=== PATIENT | female | born 2000 | race Caucasian/White ===

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

== ENCOUNTER 2024-02-18 09:01 | Emergency (ER) | payer SELFPAY ==
[2024-02-18] MEDS ORDERED: Ibuprofen 800 MG TAB ONE (09:27)
[2024-02-18] MEDS ORDERED: Acetaminophen 500 MG TAB ONE (09:28)
[2024-02-18 09:49] LABS: Pregnancy Test - Urine (BHCG) Negative (Negative); Pregu Control Background? CLEAR/WHITE (CLR/WHITE); Pregu Control Bar Appear? YES (CONTROL BAR); Specific Gravity 1.027 (1.002-1.036)
== END 2024-02-18 10:13 | disposition home or self-care (01) ==
LOC: MADERS 09:01
DX: S83.411A Sprain of medial collateral ligament of right knee, initial encounter (principal); Z87.891 Personal history of nicotine dependence; X50.0XXA Overexertion from strenuous movement or load, initial encounter; Y93.39 Activity, other involving climbing, rappelling and jumping off
CPT/HCPCS: 81025; 99283